=== PATIENT | female | born 1975 | race Caucasian/White ===

== ENCOUNTER 2022-04-06 22:21 | Observation (INO) | payer BC ==
[2022-04-06 23:09] LABS: Basophils # (A) 0.1 k/uL (0-0.2); Basophils % (A) 1 %; Eosinophils # (A) 0.1 k/uL (0-0.7); Eosinophils % (A) 1 %; HCT 44.6 % (34.0-46.0); HGB 14.4 gm/dL (11.4-16.0); Lymphocytes # (A) 1.9 k/uL (1.0-4.8); Lymphocytes % (A) 33 %; MCH 29.1 pg (25.0-35.0); MCHC 32.2 g/dL (31.0-37.0); MCV 90.4 fL (80.0-100.0); Mean Platelet Volume 7.6; Monocytes # (A) 0.2 k/uL (0-1.0); Monocytes % (A) 4 %; Neutrophils # (A) 3.5 k/uL (1.3-7.7); Neutrophils % (A) 59 %; Platelet Count 226 k/uL (150-450); RBC 4.94 m/uL (3.80-5.40); WBC 5.8 k/uL (3.8-10.6)
[2022-04-06 23:18] LABS: Partial Thromboplastin Time 22.1 sec (22.0-30.0); Prothrombin Time 10.8 sec (9.0-12.0)
[2022-04-06 23:20] LABS: ALT 13 U/L (4-34); AST 25 U/L (14-36); African American GFR (CKD) >90 (>60 ml/min/1.73 sqM); Albumin 4.8 g/dL (3.5-5.0); Alkaline Phosphatase 61 U/L (38-126); Anion Gap 11 mmol/L; Blood Urea Nitrogen 19 mg/dL (7-17); Calcium 9.6 mg/dL (8.4-10.2); Carbon Dioxide 25 mmol/L (22-30); Chloride 103 mmol/L (98-107); Glucose 118 mg/dL (74-99); Magnesium 1.9 mg/dL (1.6-2.3); Non-African American GFR(CKD) >90 (>60 ml/min/1.73 sqM); Potassium 3.6 mmol/L (3.5-5.1); Sodium 139 mmol/L (137-145); Total Bilirubin 1.2 mg/dL (0.2-1.3); Total Protein 7.4 g/dL (6.3-8.2)
--- NOTE | 2022-04-07 01:33 | XR ---
EXAMINATION TYPE: XR chest 2V DATE OF EXAM: 04/07/2022 COMPARISON: NONE HISTORY: Chest pain TECHNIQUE: 2 views FINDINGS: Heart and mediastinum are normal. Lungs are clear. Diaphragm is normal. Bony thorax is inta ct IMPRESSION: Normal chest.
[2022-04-07] MEDS ORDERED: NITROGLYCERIN SL TABS 0.4 MG TAB SUBLINGUAL PRN (02:17)
[2022-04-07] MEDS ORDERED: MORPHINE SULFATE 4 MG/ML SYRINGE IV STA (02:23)
[2022-04-07] MEDS ORDERED: ASPIRIN 81 MG PO STA (02:23)
[2022-04-07] MEDS ORDERED: NITROGLYCERIN SL TABS 0.4 MG TAB SUBLINGUAL STA (02:23)
[2022-04-07] MEDS ORDERED: SODIUM CHLORIDE 0.9% 1,000 ML IV SCH (02:30)
--- NOTE | 2022-04-07 02:38 | ED ---
Chest Pain HPI - General Chief Complaint: Chest Pain Stated Complaint: Chest pains,Dizziness Time Seen by Provider: 04/07/22 01:36 Source: patient Mode of arrival: wheelchair Limitations: no limitations - History of Present Illness Initial Comments: This patient is a 46-year-old woman who complains of having chest pains in the left upper chest and radiating to the left shoulder that is been going on since Tuesday. Over the course of the weekend she also was having some associated dizziness. Last night and tonight she was having some nausea as well. Patient does report that there is family history of heart disease she states that both of her parents have had heart attacks. She has not had any associated diaphoresis, dyspnea, palpitations or syncope. MD Complaint: chest pain -: days(s) Onset: during rest Pain Location: left chest Pain Radiation: LUE, neck Severity: moderate Quality: aching Consistency: constant Improves With: nothing Worsens With: nothing Treatments Prior to Arrival: none - Related Data On Oral Contraceptives: No Allergies Allergy/AdvReac Type Severity Reaction Status Date / Time No Known Allergies Allergy Verified 04/06/22 22:27 Review of Systems ROS Statement: Those systems with pertinent positive or pertinent negative responses have been documented in the HPI. ROS Other: All systems not noted in ROS Statement are negative. Constitutional: Denies: fever, chills Respiratory: Denies: cough, dyspnea Cardiovascular: Reports: chest pain. Denies: palpitations, dyspnea on exertion Gastrointestinal: Denies: abdominal pain, nausea, vomiting Genitourinary: Denies: dysuria, frequency Musculoskeletal: Denies: back pain Skin: Denies: rash Neurological: Denies: headache, weakness, numbness EKG Findings - EKG Results: EKG: interpreted by ERMD, sinus rhythm (Rate 79 bpm), normal axis, normal QRS, normal ST/T, no acute changes - PA, Pacemaker, Normal: Normal tracing: normal tracing Past Medical History Past Medical History: Thyroid Disorder History of Any Multi-Drug Resistant Organisms: None Reported Past Surgical History: Hernia Repair Past Psychological History: No Psychological Hx Reported Smoking Status: Never smoker Past Alcohol Use History: Occasional Past Drug Use History: None Reported - Past Family History Mother Family Medical History: Hypertension General Exam Limitations: no limitations General appearance: alert, in no apparent distress Head exam: Present: atraumatic, normocephalic Eye exam: Present: normal appearance. Absent: scleral icterus, conjunctival injection Neck exam: Present: normal inspection Respiratory exam: Present: normal lung sounds bilaterally. Absent: respiratory distress, wheezes, rales, rhonchi, stridor Cardiovascular Exam: Present: regular rate, normal rhythm, normal heart sounds. Absent: systolic murmur, diastolic murmur, rubs, gallop GI/Abdominal exam: Present: soft. Absent: distended, tenderness, guarding, rebound, rigid Extremities exam: Present: normal inspection, normal capillary refill. Absent: pedal edema, calf tenderness Back exam: Present: normal inspection. Absent: CVA tenderness (R), CVA tenderness (L) Neurological exam: Present: alert Skin exam: Present: warm, dry, intact, normal color. Absent: rash Course Vital Signs 04/06/22 04/07/22 04/07/22 22:27 01:33 02:44 Temperature 98.2 F Pulse Rate 85 93 85 Pulse Rate [ 98 Mechanical Press Operator ] Respiratory 16 18 18 Rate Blood Pressure 159/92 160/104 130/77 O2 Sat by Pulse 98 98 96 Oximetry 04/07/22 04:00 Temperature Pulse Rate 82 Pulse Rate [ Mechanical Press Operator ] Respiratory 18 Rate Blood Pressure 128/83 O2 Sat by Pulse 96 Oximetry Disposition Clinical Impression: Chest pain Disposition: ADMITTED IP TO THIS HOSP Condition: Good Is patient prescribed a controlled substance at d/c from ED?: No
[2022-04-07] MEDS ORDERED: ATORVASTATIN 80 MG TAB PO SCH (04:51)
--- NOTE | 2022-04-07 04:52 | P.HPIM ---
History of Present Illness H&P Date: 04/07/22 The patient is a 46-year-old female with a PMH of hypothyroidism who presents to the emergency room with complaints of left-sided chest discomfort. The patient reports that her discomfort started around one week ago, is in the left upper chest, radiating to the left arm, aching in nature, without associated shortness of breath, nausea, diaphoresis, or palpitations. She reports no prior history o f cardiac issues. Denies lower extremity swelling or pain. Believes it may be somehow connected with Effexor that was started a few days prior to the onset for perimenopausal symptoms, which she then stopped taking. Reports that the pain is constant although varies in intensity, currently at a 6 out of 10. No clear alleviating or exacerbating features, and nonpleuritic in nature. EKG reveals sinus rhythm at [address]/T-wave changes noted as reviewed by me. Chest x-ray was unremarkable. Laboratory evaluation revealed a troponin less than 0.012. Review of systems: Pertinent positives and negatives as discussed in HPI, a complete review of systems was performed and all other systems are negative. Physical examination: General: non toxic, no distress, appears at stated age, normal weight Derm: no unusual rashes/lesions no unusual ecchymoses, warm, dry Head: atraumatic, normocephalic, symmetric Eyes: EOMI, no lid lag, anicteric sclera, pupils equal round reactive to light ENT: Nose and ears atraumatic, no thrush, no pharyngeal erythema Neck: No thyromegaly, no cervical lymphadenopathy, trachea midline, supple Mouth: no lip lesion, mucus membranes moist Cardiovascular: S1S2 reg, no murmur, positive posterior tibial pulse bilateral, no edema, capillary refill less than 2 seconds Lungs: CTA bilateral, no rhonchi, no rales , no accessory muscle use Abdominal: soft, nontender to palpation, no guarding, no appreciable organomegaly, normal bowel sounds Ext: no gross muscle atrophy, muscle strength 5 out of 5 in all 4 extremities grossly, no contractures, Neuro: CN II-XI grossly intact, light touch intact all 4 extremities, finger to nose within normal limits, Psych: Alert, oriented, appropriate affect Assessment/plan Chest pain, rule out ACS -Cardiac monitoring -Cardiology consult -Trend troponin -Echocardiogram -Continue with aspirin, statin Chronic conditions: Hypothyroidism -Continue with home meds DVT prophylaxis -Heparin subcu The patient is admitted with an anticipated less than 2 midnight stay for evaluation of chest pain CODE STATUS: Full Code Discussed with: Patient Anticipated discharge date: in am Anticipated discharge place: Home Past Medical History Past Medical History: Thyroid Disorder History of Any Multi-Drug Resistant Organisms: None Reported Past Surgical History: Hernia Repair Past Psychological History: No Psychological Hx Reported Smoking Status: Never smoker Past Alcohol Use History: Occasional Past Drug Use History: None Reported - Past Family History Mother Family Medical History: Hypertension Medications and Allergies Allergies Allergy/AdvReac Type Severity Reaction Status Date / Time No Known Allergies Allergy Verified 04/06/22 22:27 Physical Exam Vitals: Vital Signs Temp Pulse Pulse Resp BP Pulse Ox 04/07/22 04:00 82 18 128/83 96 04/07/22 02:44 85 18 130/77 96 04/07/22 01:33 93 98 18 160/104 98 04/06/22 22:27 98.2 F 85 16 159/92 98 Intake and Output 04/06/22 04/06/22 04/07/22 14:59 22:59 06:59 Other: Weight 63.503 kg Results CBC & Chem 7: 04/06/22 22:32 04/06/22 22:32 Labs: Abnormal Lab Results - Last 24 Hours (Table) 04/06/22 Range/Units 22:32 BUN 19 H (7-17) mg/dL Glucose 118 H (74-99) mg/dL
[2022-04-07] MEDS ORDERED: ACETAMINOPHEN TAB 325 MG TAB PO STA (05:21)
[2022-04-07] MEDS ORDERED: HEPARIN SODIUM,PORCINE/PF 5,000 UNIT/0.5 ML SYRINGE SQ SCH (08:00)
[2022-04-07 08:02] VITALS: RESP 16
--- NOTE | 2022-04-07 09:17 | CA ---
Transthoracic Echo Report Name: Taylor Encarnacion Age: 46 Gender: F : 1975 Exam Date: 04/07/2022 07:29 Exam Location: [place] [facility] Ht (in): 64 Wt (lb): 140 Ordering Physician: Wili Stokes MD Attending/Referring Phys: Cargo Checker Zonia Vaughan RDCS Procedure CPT: Indications: Chest Pain Cardiac Hx: Hx of svt Technical Quality: Good Contrast 1: Total Dose (mL): Contrast 2: Total Dose (mL): MEASUREMENTS (Male / Female) Normal Values 2D ECHO LV Diastolic Diameter PLAX 4.4 cm 4.2 - 5.9 / 3.9 - 5.3 cm LV Systolic Diameter PLAX 2.2 cm IVS Diastolic Thickness 0.7 cm 0.6 - 1.0 / 0.6 - 0.9 cm LVPW Diastolic Thickness 1.0 cm 0.6 - 1.0 / 0.6 - 0.9 cm LV Relative Wall Thickness 0.4 LA Volume 32.7 cm??? 18 - 58 / 22 - 52 cm??? M-MODE Aortic Root Diameter MM 2.8 cm LA Systolic Diameter MM 2.3 cm LA Ao Ratio MM 0.8 MV E Point Septal Separation 0.5 cm AV Cusp Separation MM 2.1 cm DOPPLER AV Peak Velocity 130.1 cm/s AV Peak Gradient 6.8 mmHg MV Area PHT 4.0 cm??? MR Peak Velocity 170.7 cm/s MR Peak Gradient 11.7 mmHg Mitral E Point Velocity 84.8 cm/s Mitral A Point Velocity 67.0 cm/s Mitral E to A Ratio 1.3 MV Deceleration Time 188.4 ms MV E' Velocity 11.0 cm/s Mitral E to MV E' Ratio 7.7 TR Peak Velocity 187.4 cm/s TR Peak Gradient 14.0 mmHg Right Ventricular Systolic Press 18.4 mmHg FINDINGS Left Ventricle Mildly increased posterior wall thickness. Normal Left ventricular size, systolic function with no obvious regional wall motion abnormalities. Normal Left ventricular diastolic filling pattern. Left ventricular ejection fraction is estimated at 55-60 %. Right Ventricle The right ventricle is normal in size and function. Right Atrium The right atrium is normal in size. Left Atrium The left atrium is normal in size. Mitral Valve Structurally normal mitral valve without significant stenosis or prolapse. There is trace mitral regurgitation. Mitral valve thickened. Aortic Valve Structurally normal aortic valve without significant sclerosis or stenosis. There is no aortic regurgitation. Tricuspid Valve Structurally normal tricuspid valve without significant stenosis. Pulmonary artery systolic pressure is normal. Trace tricuspid regurgitation. Pulmonic Valve Structurally normal pulmonic valve without significant stenosis. There is no pulmonic regurgitation. Pericardium Normal pericardium without effusion. Aorta Normal aortic root dimension. CONCLUSIONS #1. Normal left ventricular size and function. #2. Normal valvular structure and function Previewed by: Dr. Aiden Duarte MD (Electronically Signed) Final Date: 07 April 2022 09:16
--- NOTE | 2022-04-07 10:06 | P.CRDCN ---
History of Present Illness Consult date: 04/07/22 History of present illness: HISTORY OF PRESENT ILLNESS: This is a 46-year-old female with a past medical history significant for hypothyroidism, palpitations, and runs of SVT noted on a previous event monitor which the patient states was secondary to caffeine and stress related. Patient does not follow with a information tech. We have been asked to see the patient in consultation for chest pain. Patient examined at the bedside. Patient states t hat last week she was evaluated by her PCP and started on Effexor. The patient states that she only took this medication on Tuesday and Tuesday. She reports on Tuesday she began having nausea. She reports having some aches and pains in her left arm and her left chest. She states that she thought it was medication related so she was drinking a lot of water trying to flush the medication out of her system. She states that yesterday she began to feel dizzy and thought she was going to pass out. She reports continued discomfort in her left arm and chest. She denies worsening pain with movement. Denies worsening pain with chest wall palpation or deep inspiration. * EKG reveals sinus mechanism with no signs of acute ischemia. * Chest xray negative for acute process * Laboratory data: WBC 5.8. Hemoglobin 14.4. Platelet count 226. Sodium 139. Potassium 3.6. BUN 19. Creatinine 0.76. Magnesium 1.9. Troponin negative 3. * Current home cardiac medications include none REVIEW OF SYSTEMS: At the time of my exam: CONSTITUTIONAL: Denies fever or chills. HEENT: Denies blurred vision, vision changes, or eye pain. Denies hemoptysis CARDIOVASCULAR: Denies chest pain. Denies orthopnea. Denies PND. Denies palpitations RESPIRATORY: Denies shortness of breath. GASTROINTESTINAL: Denies abdominal pain. Denies nausea or vomiting. HEMATOLOGIC: Denies bleeding disorders. GENITOURINARY: Denies any blood in urine. SKIN: Denies pruitis. Denies rash. PHYSICAL EXAM: VITAL SIGNS: Reviewed. GENERAL: Well-developed in no acute distress. HEENT: Head is normocephalic. Pupils are equal, round. Sclerae anicteric. Mucous membranes of the mouth are moist. Neck supple. No JVD or thyromegaly LUNGS: Respirations even and unlabored. Lungs essentially clear to auscultation bilaterally. HEART: Regular rate and rhythm. S1 and S2 heard. ABDOMEN: Soft. Nondistended. Nontender. EXTREMITIES: Normal range of motion. No clubbing or cyanosis. Peripheral pulses intact. No lower extremity edema NEUROLOGIC: Awake and alert. Oriented x 3. ASSESSMENT: Chest pain with left shoulder pain, troponins negative 3 Dizziness Presyncope Hypothyroidism History of palpitations History of SVT noted on previous event monitor, per patient PLAN: An acute coronary event has been ruled out Obtain 2-D echo to assess cardiac structure and function Patient to undergo stress echocardiogram today to assess for ischemia Continue telemetry monitoring to assess for any arrhythmias Further recommendations pending patient's course Nurse practitioner note has been reviewed by physician. Signing provider agrees with the documented findings, assessment, and plan of care. Past Medical History Past Medical History: Thyroid Disorder History of Any Multi-Drug Resistant Organisms: None Reported Past Surgical History: Hernia Repair Past Psychological History: No Psychological Hx Reported Smoking Status: Never smoker Past Alcohol Use History: Occasional Past Drug Use History: None Reported - Past Family History Mother Family Medical History: Hypertension Medications and Allergies Home Medications Medication Instructions Recorded Confirmed Type Levothyroxine Sodium [Synthroid] 50 mcg PO DAILY 04/07/22 04/07/22 History Allergies Allergy/AdvReac Type Severity Reaction Status Date / Time venlafaxine AdvReac Nausea/Dizziness/Chest Verified 04/07/22 07:01 Pain stress test medication AdvReac See Uncoded 04/07/22 07:01 (unknown) Comments Physical Exam Vitals: Vital Signs Temp Pulse Pulse Resp BP Pulse Ox 04/07/22 08:01 97.6 F 70 16 129/85 98 04/07/22 04:00 82 18 128/83 96 04/07/22 02:44 85 18 130/77 96 04/07/22 01:33 93 98 18 160/104 98 04/06/22 22:27 98.2 F 85 16 159/92 98 Intake and Output 04/06/22 04/07/22 04/07/22 22:59 06:59 14:59 Other: Weight 63.503 kg Results 04/06/22 22:32 04/06/22 22:32 Cardiac Enzymes 04/06/22 04/06/22 04/07/22 Range/Units 22:32 22:32 02:57 AST 25 (14-36) U/L Troponin I <0.012 <0.012 (0.000-0.034) ng/mL Coagulation 04/06/22 Range/Units 22:32 PT 10.8 (9.0-12.0) sec APTT 22.1 (22.0-30.0) sec CBC 04/06/22 Range/Units 22:32 WBC 5.8 (3.8-10.6) k/uL RBC 4.94 (3.80-5.40) m/uL Hgb 14.4 (11.4-16.0) gm/dL Hct 44.6 (34.0-46.0) % Plt Count 226 (150-450) k/uL Comprehensive Metabolic Panel 04/06/22 Range/Units 22:32 Sodium 139 (137-145) mmol/L Potassium 3.6 (3.5-5.1) mmol/L Chloride 103 (98-107) mmol/L Carbon Dioxide 25 (22-30) mmol/L BUN 19 H (7-17) mg/dL Creatinine 0.76 (0.52-1.04) mg/dL Glucose 118 H (74-99) mg/dL Calcium 9.6 (8.4-10.2) mg/dL AST 25 (14-36) U/L ALT 13 (4-34) U/L Alkaline Phosphatase 61 (38-126) U/L Total Protein 7.4 (6.3-8.2) g/dL Albumin 4.8 (3.5-5.0) g/dL Current Medications Generic Name Dose Route Start Last Admin Trade Name Freq PRN Reason Stop Dose Admin Aspirin 325 mg 04/08/22 09:00 Aspirin 325 Mg Tab PO DAILY [facility] Atorvastatin Calcium 80 mg 04/07/22 04:51 04/07/22 05:45 Atorvastatin 80 Mg Tab PO Not Given HS DEVON Heparin Sodium (Porcine) 5,000 unit 04/07/22 08:00 04/07/22 08:20 Heparin Sodium,Porcine/Pf 5,000 Unit/0.5 Ml Syringe SQ 5,000 unit Q8HR DEVON Administration Sodium Chloride 1,000 mls @ 20 mls/hr 04/07/22 02:30 04/07/22 02:55 Saline 0.9% IV 20 mls/hr .Q24H DEVON Administration Nitroglycerin 0.4 mg 04/07/22 02:17 Nitroglycerin Sl Tabs 0.4 Mg Tab SUBLINGUAL Q5M PRN Chest Pain Intake and Output 04/06/22 04/07/22 04/07/22 22:59 06:59 14:59 Other: Weight 63.503 kg 04/06/22 22:32 04/06/22 22:32
--- NOTE | 2022-04-07 11:57 | CA ---
Stress Echo Report Taylor Encarnacion Age: 46 Gender: F : 1975 Exam Date: 04/07/2022 11:26 Exam Location: [facility] Ht (in): 64 Wt (lb): 145 Ordering Physician: Angie Pastor Referring Physician: [id number] Operations Label Clerk: Kalie Fraser RDCS Technologist Procedure CPT: Indication: Chest Pain ICD-9 Codes: Rhythm: Patient History: Cardiac Medications: Medications in past 24 hours: Contrast: Stress Results Protocol: Jonny Total dose(mL): Exercise Duration (min:sec): 9:[address] Depression (mm): Angina Score: Sauceda Score: METS: 10.5 Resting HR: 72 Resting BP: 99 / 56 Peak HR: 154 Peak BP: 131 / 76 Max Predicted HR: 172 90 % Max Predicted HR Target HR: 146 Double Product: Stress Summary: BP Response: Reason for Termination: Cardiac Symptoms: ECG Analysis Resting ECG: Sinus rhythm Stress ECG: Sinus rhythm without any changes of ischemia Arrhythmia: Echo Analysis Resting Echo: Normal wall motion and thickening Peak Echo Analysis: Augmentation wall motion and thickening in all the segments MEASUREMENTS (Male/Female) Normal Values CONCLUSIONS #1. Negative stress test. #2. Negative stress echo Dr. Aiden Duarte MD (Electronically Signed) Final Date: 07 April 2022 11:56
[2022-04-07 13:58] VITALS: BP 106/75; PULSE 99; TEMP 98.2
--- NOTE | 2022-04-07 15:50 | P.DS ---
Providers Date of admission: 04/07/22 02:17 Expected date of discharge: 04/07/22 Attending physician: Wili Stokes MD Primary care physician: Ruthie Varghese [facility] Hospital Course: Discharge Diagnosis: Chest pain, acute coronary event ruled out Hypothyroidism Hospital Course: Patient is a 38-year-old female with a past medical history of hypothyroidism. She presented to the emergency department with a chief complaint of chest pain radiating into left shoulder worsening with exertion. She denied any associated symptoms including headache, lightheadedness, dizziness, palpitations, shortness of breath, nausea, vomiting, or experiencing any numbness/tingling/weakness in her extremities. She underwent full evaluation in the emergency department. EKG showing normal sinus rhythm at 79 bpm with no noted T-wave or ST abnormalities. Chest x-ray negative for acute cardiopulmonary process. CBC, coags, and CMP unremarkable. Troponin negative at less than 0.012. TSH normal at 4.370. Patient was admitted under our services with consultation to cardiology. Troponins trended throughout the night all negative at less than 0.0123 draws. Echocardiogram completed revealing normal EF of 55-60% with no noted structural or valvular abnormalities. Patient was evaluated by cardiology and underwent cardiac stress test. stress echo completed revealing negative stress test and negative stress echo. Cardiology clearing patient from cardiac perspective recommending outpatient follow-up in our office. Vital signs unremarkable. Patient is medically stable. Orthostatic vitals negative. Patient stable for discharge home at this time and recommended outpatient follow-up with PCP in 1-2 days and cardiology in 2 weeks. Physical examination: Patient seen and examined at bedside. Vital signs reviewed and stable. General: Nontoxic, no distress and appears stated age. Derm: Skin warm and dry, normal coloration for ethnicity. Head: Atraumatic, normocephalic and symmetric. Eyes: EOMs intact, no lid lag, and anicteric sclera Mouth: no lip lesions, mucus membranes moist Cardiovascular: regular rate and rhythm with normal S1S2, no murmur, positive posterior tibial pulses bilaterally, and cap refill < 2 seconds. Lungs: Respirations even, regular, and unlabored on room air. Lungs CTA bilaterally, no rhonchi, no rales, no wheezing, and no accessory muscle usage. Abdominal: soft, nontender to palpation, no guarding, no appreciable organomegaly Ext: ROM intact. No gross muscle atrophy, no edema, no contractures Neuro: Speech clear, face symmetrical and CN II-XII grossly intact with no noted focal neuro deficits Psych: Alert and oriented to person, place, time, and situation. Appropriate and pleasant affect. A total of 31 minutes of time were spent preparing this complex discharge summary. Pt was discharged on 04/07/22 at 1:18 PM Vish Amanda NP rendered care for this patient independently, reviewed the findings and plan as documented in the note above. I did not physically speak with or examine the patient on this date. Patient Condition at Discharge: Stable Plan - Discharge Summary New Discharge Prescriptions: Continue Levothyroxine Sodium [Synthroid] 50 mcg PO DAILY Discharge Medication List Levothyroxine Sodium [Synthroid] 50 mcg PO DAILY 04/07/22 [History] Follow up Appointment(s)/Referral(s): Ruthie Varghese MD [Primary Care Provider] - 1-2 days Activity/Diet/Wound Care/Special Instructions: Activity: As tolerated. Take breaks as needed. Diet: Heart healthy and carb consistent diet. Avoid salts, or foods with hidden salts such as canned or boxed foods and frozen dinners. Extra salt makes your heart work harder and traps the fluid in your body for longer. Special Instructions: Take all of your medications as directed and remember to keep all of your doctor's appointments and follow-up as needed. Thank you for allowing us to participate in your care, it was truly a pleasure having you for our patient!!! Discharge Disposition: HOME SELF-CARE
[2022-04-08] MEDS ORDERED: ASPIRIN 325 MG TAB PO SCH (09:00)
[2022-04-08] MEDS ORDERED: ASPIRIN 81 MG PO SCH (09:00)
== END 2022-04-07 13:57 | disposition home or self-care (01) ==
LOC: EC 22:21 → 6NMEDSUR 04-07 02:17
PROVIDERS: ADMIT Internal Medicine; ATTEND Internal Medicine
DX: R07.89 Other chest pain (principal); R42 Dizziness and giddiness; E03.9 Hypothyroidism, unspecified; R55 Syncope and collapse; R00.2 Palpitations; I47.1 Supraventricular tachycardia; M79.602 Pain in left arm; M25.512 Pain in left shoulder; Z88.8 Allergy status to other drugs, medicaments and biological substances; Z79.890 Hormone replacement therapy; Z71.3 Dietary counseling and surveillance; Z82.49 Family history of ischemic heart disease and other diseases of the circulatory system
CPT/HCPCS: 99285; 96372; 36415; 93005; 93306; 93351; 80053; 84443; 83735; 84484 ×2; 85025; 85610; 85730; 71046; G0378; J1644